=== PATIENT | male | born 1955 | race Caucasian/White ===

== ENCOUNTER 2024-04-05 07:20 | Day surgery (SDC) | payer BC, OTHER ==
--- NOTE | 2024-04-04 10:42 | HP ---
DATE OF SURGERY: 04/05/2024 HISTORY OF PRESENT ILLNESS: The patient is a 68-year-old male presents for colonoscopy. Last colonoscopy he had some polyps. He is not sure when that was. He has no colon complaints. No family history of colon cancer. PAST MEDICAL HISTORY: Erectile dysfunction. PAST SURGICAL HISTORY: Carpal tunnel. Rotator cuff. ALLERGIES: PENICILLIN. MEDICATIONS: Centrum Complete. Glucosamine. FAMILY HISTORY: Lung cancer. Diabetes. SOCIAL HISTORY: Negative. REVIEW OF SYSTEMS: CONSTITUTIONAL: Denies fever or chills. CHEST: Denies shortness of breath. CVS: Denies chest pain. ABDOMEN: Denies abdominal pain. PHYSICAL EXAMINATION: GENERAL: No acute distress. CHEST: Nonlabored. No shortness of breath. CVS: Regular rate and rhythm. ABDOMEN: Soft. IMPRESSION: History of polyps. PLAN: Colonoscopy with Dr. Francisco Churchill. As dictated by Janine Thrasher NP.
[2024-04-05] MEDS ORDERED: Lactated Ringers 1,000 ML IV ONE ×2 (07:41→11:40)
[2024-04-05] MEDS: Lactated Ringers 1,000 ML IV SCH (07:47)
[2024-04-05 07:59] VITALS: RESP 16
[2024-04-05] MEDS ORDERED: DIPRIVAN 200 MG/20 ML IV ONE ×2 (11:52→12:31)
[2024-04-05] MEDS ORDERED: Versed 2 MG/2 ML Injection ONE (11:52)
[2024-04-05] MEDS ORDERED: GlucaGen 1 MG ONE (12:10)
[2024-04-05 12:38] VITALS: BP 100/73; PULSE 61; TEMP 98; O2SAT 100
--- NOTE | 2024-04-05 14:34 | OP ---
SURGERY DATE/TIME: 04/05/2024 1204 PREOPERATIVE DIAGNOSIS: Follow up polyps. POSTOPERATIVE DIAGNOSIS: Normal. PROCEDURE: Colonoscopy to cecum. SURGEON: Francisco Churchill M.D. ANESTHESIA: MAC. COMPLICATIONS: None. CONDITION: Stable. INDICATION: A patient presents for five year follow up. DESCRIPTION OF PROCEDURE: Taken to endoscopy. Left lateral decubitus position. Anal digital examination satisfactory. Tone satisfactory. Scope introduced. Rectum satisfactory. Sigmoid navigated. The scope advanced over the cecum. Base of the cecum, ileocecal valve, appendiceal orifice normal and photographed. Ascending, hepatic, transverse, splenic, descending, sigmoid, rectum, anus normal. Normal exam. Follow up in five years for history of polyps.
== END 2024-04-05 12:50 | disposition home or self-care (01) ==
LOC: SDC 07:20
PROVIDERS: ATTEND Surgery
DX: Z12.11 Encounter for screening for malignant neoplasm of colon (principal); Z09 Encounter for follow-up examination after completed treatment for conditions other than malignant neoplasm; Z86.010 Personal history of colon polyps; Z80.1 Family history of malignant neoplasm of trachea, bronchus and lung
CPT/HCPCS: J1610; J2250; J2704